=== PATIENT | male | born 1990 | race Caucasian/White ===

== ENCOUNTER 2019-04-08 21:48 | Emergency (ER) | payer OTHER ==
[~2019-04-08] VITALS: Ht 180.3 cm; Wt 102.7 kg
[2019-04-09] MEDS ORDERED: PERTUSS(ACELL),DIPH,TET VAC/PF 0.5 ML VIAL IM ONE (00:30)
[2019-04-09] MEDS ORDERED: AMOX TR/POT CLAV 500 MG/125 MG TABLET PO ONE (00:45)
[2019-04-09] MEDS ORDERED: IBUPROFEN 400 MG TABLET PO ONE (00:45)
[2019-04-09] MEDS ORDERED: AMOX TR/POT CLAV 875 MG/125 MG TABLET PO ONE (01:00)
[2019-04-09 01:12] VITALS: BP 127/73
== END 2019-04-09 01:53 | disposition home or self-care (01) ==
LOC: EMS 21:49
DX: S62.637A Displaced fracture of distal phalanx of left little finger, initial encounter for closed fracture (principal); S61.452A Open bite of left hand, initial encounter; S60.512A Abrasion of left hand, initial encounter; F17.210 Nicotine dependence, cigarettes, uncomplicated; Y04.1XXA Assault by human bite, initial encounter; Y93.89 Activity, other specified; Y92.89 Other specified places as the place of occurrence of the external cause; Y99.8 Other external cause status
CPT/HCPCS: 90715

== ENCOUNTER 2019-04-11 21:33 | Emergency (ER) | payer OTHER ==
[~2019-04-11] VITALS: Ht 180.3 cm; Wt 102.7 kg
[2019-04-11 23:47] LABS: BASOPHILS % (AUTO) 0.9 % (0.0-2.0); EOSINOPHILS % (AUTO) 1.5 % (1.0-6.0); HEMATOCRIT 41.2 % (41-53); LYMPHOCYTES # (AUTO) 2.3 K/uL (1.0-4.8); LYMPHOCYTES % (AUTO) 22.5 % (22.0-44.0); MEAN CORPUSCULAR HEMOGLOBIN 29.2 pg (26.0-34.0); MEAN CORPUSCULAR HGB CONC 33.9 G/dL (31.0-37.0); MEAN CORPUSCULAR VOLUME 86 fL (80-100); MONOCYTES # (AUTO) 0.8 K/uL (0.1-1.0); MONOCYTES % (AUTO) 7.8 % (2.0-9.0); NEUTROPHILS # (AUTO) 6.9 K/uL (1.8-7.7); NEUTROPHILS % (AUTO) 67.3 % (40.0-70.0); PLATELET COUNT (AUTO) 272 K/uL (150-450); RED BLOOD CELL COUNT(AUTO) 4.79 MIL/uL (4.50-5.90)
[2019-04-12] LABS: ANION GAP 7 mmol/L (8-16); CALCIUM, TOTAL 8.6 mg/dL (8.8-10.5); CARBON DIOXIDE 28 mmol/L (22-29); CHLORIDE 103 mmol/L (98-107); GLOMERULAR FILTR. RATE CALC > 60 mL/min (>60); GLUCOSE,RANDOM 97 mg/dL (70-110); POTASSIUM 4.1 mmol/L (3.5-5.1); SODIUM SERUM 138 mmol/L (136-145); UREA NITROGEN, BLOOD 17 mg/dL (7-18)
[2019-04-12 00:24] LABS: ALANINE AMINOTRANSFERASE 45 U/L (12-78); ALBUMIN 3.3 g/dL (3.4-5.0); ALKALINE PHOSPHATASE 72 U/L (46-116); ASPARTATE AMINOTRANSFERASE 29 U/L (15-37); BILIRUBIN,TOTAL 0.2 mg/dL (0.1-1.0); CREATINE KINASE, TOTAL ONLY 899 U/L (39-308); TOTAL PROTEIN, SERUM 6.8 g/dL (6.4-8.2)
[2019-04-12] MEDS ORDERED: SODIUM CHLORIDE 0.9% 1,000 ML IV ONE (03:45)
[2019-04-12 06:51] VITALS: BP 141/80
== END 2019-04-12 06:51 | disposition home or self-care (01) ==
LOC: EMS 21:34
DX: F18.10 Inhalant abuse, uncomplicated (principal); R42 Dizziness and giddiness; F17.210 Nicotine dependence, cigarettes, uncomplicated; Z98.890 Other specified postprocedural states
CPT/HCPCS: 36415; 80053; 82550; 84484; 85025; 93005; 96360; 99284; J7030

== ENCOUNTER 2023-03-29 17:16 | Emergency (ER) | payer OTHER ==
[~2023-03-29] VITALS: Ht 177.8 cm; Wt 92.0 kg
[2023-03-29] MEDS ORDERED: DiphenhydrAMINE HCL 50 MG/ML VIAL IM ONE (17:30)
[2023-03-29] MEDS ORDERED: HALOPERIDOL LACTATE 5 MG/ML VIAL IM ONE (17:30)
[2023-03-29] MEDS ORDERED: LORazepam 2 MG/ML VIAL IM ONE (17:30)
[2023-03-29 17:55] LABS: BASOPHILS % (AUTO) 0.4 % (0.0-2.0); EOSINOPHILS % (AUTO) 0.1 % (1.0-6.0); HEMATOCRIT 44.9 % (41-53); HEMOGLOBIN 14.9 g/dL (13.5-17.5); LYMPHOCYTES # (AUTO) 1.4 K/uL (1.0-4.8); LYMPHOCYTES % (AUTO) 11.3 % (22.0-44.0); MEAN CORPUSCULAR HEMOGLOBIN 29.2 pg (26.0-34.0); MEAN CORPUSCULAR HGB CONC 33.2 G/dL (31.0-37.0); MEAN CORPUSCULAR VOLUME 88 fL (80-100); NEUTROPHILS # (AUTO) 9.6 K/uL (1.8-7.7); NEUTROPHILS % (AUTO) 80.2 % (40.0-70.0); PLATELET COUNT (AUTO) 307 K/uL (150-450); RED CELL DISTRIBUTION WIDTH 14.4 % (11.5-14.5)
[2023-03-29 17:56] LABS: COVID AG,FIA SOURCE NASAL SWAB
[2023-03-29 18:00] LABS: PH,URINE DRUG SCREEN 5.5 (5.0-8.0)
[2023-03-29 18:12] LABS: ALCOHOL, BLOOD (SERUM) < 3 mg/dL (0-10); ANION GAP 18 mmol/L (8-16); CALCIUM, TOTAL 8.3 mg/dL (8.8-10.5); CARBON DIOXIDE 20 mmol/L (22-29); CHLORIDE 104 mmol/L (98-107); CREATININE 1.49 mg/dL (0.60-1.30); GLOMERULAR FILTR. RATE CALC 54 mL/min (>60); GLUCOSE,RANDOM 131 mg/dL (70-110); POTASSIUM 3.7 mmol/L (3.5-5.1); SODIUM SERUM 142 mmol/L (136-145); UREA NITROGEN, BLOOD 19 mg/dL (7-18)
[2023-03-29 18:13] LABS: ALCOHOL, URINE DRUG SCREEN NEGATIVE (NEGATIVE); AMPHET/METH SCREEN,URINE NEGATIVE (NEGATIVE); BARBITURATE SCREEN, URINE NEGATIVE (NEGATIVE); BENZODIAZEPINES SCREEN,URINE NEGATIVE (NEGATIVE); CANNABINOID SCREEN,URINE NEGATIVE (NEGATIVE); COCAINE SCREEN,URINE NEGATIVE (NEGATIVE); METHADONE SCREEN, URINE NEGATIVE (NEGATIVE); OPIATE SCREEN,URINE NEGATIVE (NEGATIVE); PHENCYCLIDINE SCREEN,URINE NEGATIVE (NEGATIVE)
[2023-03-29 18:14] LABS: SARS-COV2 (COVID) ANTIGEN,FIA Negative (Negative)
[2023-03-29 18:17] LABS: ALANINE AMINOTRANSFERASE 43 U/L (12-78); ALBUMIN 4.1 g/dL (3.4-5.0); ALKALINE PHOSPHATASE 87 U/L (46-116); ASPARTATE AMINOTRANSFERASE 52 U/L (15-37); BILIRUBIN,TOTAL 0.6 mg/dL (0.1-1.0); TOTAL PROTEIN, SERUM 7.9 g/dL (6.4-8.2)
[2023-03-29 19:12] VITALS: TEMP 98.5
[2023-03-30 08:25] VITALS: BP 123/76; PULSE 96; RESP 16
== END 2023-03-30 11:08 | disposition home or self-care (01) ==
LOC: EMS 17:17
DX: F20.9 Schizophrenia, unspecified (principal); F17.210 Nicotine dependence, cigarettes, uncomplicated; F12.90 Cannabis use, unspecified, uncomplicated; F15.90 Other stimulant use, unspecified, uncomplicated; F14.90 Cocaine use, unspecified, uncomplicated; Z98.890 Other specified postprocedural states; Z20.822 Contact with and (suspected) exposure to COVID-19
CPT/HCPCS: 99285; 87426; 80053; 85025; 36415; 96372; 80307; G0480

== ENCOUNTER 2025-04-04 14:44 | Emergency (ER) | payer OTHER ==
[~2025-04-04] VITALS: Ht 175.3 cm; Wt 81.8 kg
[2025-04-04 15:27] VITALS: TEMP 98.4
[2025-04-04] MEDS ORDERED: 0.9% SODIUM CHLORIDE 10 ML SYRINGE IVP PRN (16:45)
[2025-04-04 17:39] LABS: PLATELET COUNT (AUTO) 369 K/uL (150-450); RED BLOOD CELL COUNT(AUTO) 5.21 MIL/uL (4.50-5.90); RED CELL DISTRIBUTION WIDTH 13.7 % (11.5-14.5); WHITE BLOOD COUNT (AUTO) 19.3 K/uL (4.5-11.0)
[2025-04-04 17:48] LABS: CALCIUM, TOTAL 8.7 mg/dL (8.8-10.5); CREATININE 0.93 mg/dL (0.60-1.30); GLOMERULAR FILTR. RATE CALC > 60 mL/min (>60); GLUCOSE,RANDOM 99 mg/dL (70-110); SODIUM SERUM 134 mmol/L (136-145); UREA NITROGEN, BLOOD 19 mg/dL (7-18)
[2025-04-04 17:52] LABS: ASPARTATE AMINOTRANSFERASE 23 U/L (15-37); C-REACTIVE PROTEIN QUANT 0.90 mg/dL (0.00-0.30); TOTAL PROTEIN, SERUM 8.2 g/dL (6.4-8.2)
[2025-04-04 17:54] LABS: LACTIC ACID 1.6 mmol/L (0.4-2.0)
[2025-04-04] MEDS: DEXAMETHASONE SOD PHOS 4 MG/ML 5 ML VIAL IVP ONE (18:00)
[2025-04-04] MEDS ORDERED: 0.9% SODIUM CHLORIDE 10 ML SYRINGE IVP ONE (18:16)
[2025-04-04] MEDS ORDERED: IOHEXOL 350 MG/ML 100 ML VIAL ONE (18:16)
[2025-04-04] MEDS ORDERED: SODIUM CHLORIDE 0.9% 100 ML ONE (18:17)
[2025-04-04] MEDS: PENICILLIN G POTASSIUM 4 MILUNITS in DEXTROSE 5%-WATER 100 ML IV ONE (18:30)
[2025-04-04] MEDS: AMPICILLIN SODIUM/SULBACTAM NA 3 GM in SODIUM CHLORIDE 0.9% 100 ML IV ONE (19:25)
[2025-04-05] MEDS: KETOROLAC TROMETHAMINE 30 MG/ML VIAL IVP ONE (07:35)
[2025-04-05 09:21] VITALS: BP 119/67; PULSE 63; RESP 18; O2SAT 98
== END 2025-04-05 09:24 | disposition admitted as inpatient to this hospital (09) ==
LOC: EMS 14:44
DX: J36 Peritonsillar abscess (principal); I10 Essential (primary) hypertension; F41.9 Anxiety disorder, unspecified; F12.90 Cannabis use, unspecified, uncomplicated; F14.90 Cocaine use, unspecified, uncomplicated; F15.90 Other stimulant use, unspecified, uncomplicated; F17.210 Nicotine dependence, cigarettes, uncomplicated; Z98.890 Other specified postprocedural states
CPT/HCPCS: 99285; 96365; 70491; 71045; 96366; 96375 ×2; 80053; 83605; 85025; 86140; 87040; 96368; 84145; 36415; Q9967; J1100; J2540; J0295; J7060; J7050; J1885